=== PATIENT | male | born 1985 | race Caucasian/White ===

== ENCOUNTER 2016-10-04 20:03 | Emergency (ER) | payer OTHER ==
[~2016-10-04] VITALS: Ht 180.3 cm; Wt 90.0 kg
[~2016-10-04 20:03] MED LIST: /DIVA50TA PO; BUPR150T3 PO; CYCL10TA3 PO; CYCL5TAB PO; CYMB60CA3 PO; DEPA500T2 PO; DIAZ5TAB PO; DIVA500T9 PO; EFFE150C PO; GABA-283 PO; GABA300C2 PO; IBUP80TA PO; IMIT50TA PO; LIDO1DIS2 TD; LIDO5OIN TOP; MAXA10TA14 PO; MECL-68 PO; MELO7.5T7 PO; METH1TAB40 PO; NAPR500T2 PO; NORT25CA2 PO; QUETIAPINE PO; Sumatriptan OR; VENL75TA2 PO; WELLTAB4 PO; Wellbutrin OR; sumatriptan OR
[2016-10-04] MEDS ORDERED: CYCL10TA PO (20:17)
[2016-10-04] MEDS ORDERED: SUMA25TA3 PO (20:17)
--- NOTE | 2016-10-04 21:32 | REP ---
Clinical: Cerebrovascular accident . Comparison: 09/25/2013 . Findings: The ventricles, sulci, and cisterns are normal in position and appearance. Arndt-white differentiation is maintained. No acute intracranial hemorrhage, mass/mass effect, pathology or trauma/injury. No evidence for acute infarction. No extra-axial fluid collection. Calvarium is intact. Paranasal sinuses and mastoid air cells are clear. Impression: Normal noncontrast head CT. No evidence for acute intracranial pathology or trauma/injury. Signed by Lawson Arriola MD 10/04/2016 09:24 P
[2016-10-04 22:40] LABS: BASO % 0.8 % (0.0-1.0); EOS # 0.2 K/mm3 (0.0-0.50); EOS % 3.1 % (0.0-3.0); LARGE UNSTAINED CELL # 0.1 K/mm3 (0.0-0.4); LARGE UNSTAINED CELL % 1.2 % (0.0-4.0); LYMPH # 1.8 K/mm3 (1.5-4.5); LYMPH % 29.7 % (24.0-44.0); MEAN CORPUSCULAR HEMOGLOBIN 29.3 pg (27.0-33.0); MEAN CORPUSCULAR VOLUME 86.3 fl (80.0-96.0); MONO # 0.3 K/mm3 (0.0-0.8); MONO % 5.9 % (0.0-5.0); NEUTROPHILS # 3.4 K/mm3 (1.8-7.7); NEUTROPHILS % 59.3 % (36.0-66.0); PLATELET COUNT, AUTOMATED 349 k/mm3 (150-450); RED CELL DISTRIBUTION WIDTH 12.7 % (11.5-14.5); WHITE BLOOD COUNT 5.8 K/mm3 (4.0-10.0)
[2016-10-04 22:52] LABS: ANION GAP 6 MEQ/L (8-16); BLOOD UREA NITROGEN 9 MG/DL (7-18); CALCIUM LEVEL 9.4 MG/DL (8.5-10.1); CARBON DIOXIDE LEVEL 29 MEQ/L (21-32); CHLORIDE LEVEL 104 MEQ/L (98-107); CREATININE FOR GFR 1.07 MG/DL (0.70-1.30); GLOMERULAR FILTRATION RATE > 60.0 (>60); GLUCOSE, FASTING 87 MG/DL (70-105); POTASSIUM SERUM 4.2 MEQ/L (3.5-5.1); SODIUM LEVEL 139 MEQ/L (136-145)
[2016-10-04 22:57] LABS: INR 0.96
[2016-10-04 23:42] VITALS: BP 125/77
--- NOTE | 2016-10-05 07:07 | REP ---
Clinical: Cerebrovascular accident . Comparison: None . Findings: The mediastinum and cardiac silhouette are stable and within normal limits for portable technique. The lung elizondo are clear without acute consolidation, effusion, or pneumothorax. Skeletal structures are intact. Impression: No acute cardiopulmonary process appreciated. Signed by Lawson Arriola MD 10/05/2016 06:59 A
--- NOTE | 2016-10-06 07:19 | ECGEPIP ---
Stationary ECG Study [facility] - ED Test Date: 2016-10-04 Pat Name: KENNY MUÑOZ Department: Room: - Gender: M Maintenance Aide: rb : 1985 Requested By: KENNY Lundberg Order Number: [id number] Reading MD: Karina Chambers Measurements Intervals [place] Rate: 70 P: 43 W[place]: 147 QRS: 4 QRSD: 87 T: 9 QT: 387 QTc: 418 Interpretive Statements SINUS RHYTHM WITH SINUS ARRHYTHMIA MODERATE VOLTAGE CRITERIA FOR LVH, CONSIDER NORMAL VARIANT Electronically Signed On 10-06-2016 7:18:38 EDT by Karina Chambers
== END 2016-10-05 00:05 | disposition home or self-care (01) ==
LOC: M ED 20:03
DX: G43.809 Other migraine, not intractable, without status migrainosus (principal); Z87.891 Personal history of nicotine dependence; Z87.828 Personal history of other (healed) physical injury and trauma

== ENCOUNTER 2017-09-29 20:51 | Emergency (ER) | payer OTHER | END 2017-09-29 22:31 | disposition home or self-care (01) | LOC: M ED 20:51 | DX: F43.0 Acute stress reaction (principal); F32.9 Major depressive disorder, single episode, unspecified; Z91.5 Personal history of self-harm; Z88.8 Allergy status to other drugs, medicaments and biological substances; Z79.899 Other long term (current) drug therapy | CPT/HCPCS: 99284 ==

== ENCOUNTER → 2023-02-01 | Outpatient (REF) | payer OTHER ==
[~2023-02-01] MED LIST changes: -/DIVA50TA PO; +ATOR80TA59 PO; +BUPR150T12 PO; -BUPR150T3 PO; +CYCL-707 PO; -CYMB60CA3 PO; +CYMB60CA4 PO; +DEPA1TAB3 PO; -EFFE150C PO; +EFFE150C2 PO; -GABA-283 PO; +GABA-284 PO; -MAXA10TA14 PO; +MECL-209 PO; +METH-1164 PO; -METH1TAB40 PO; +RIZA10TA64 PO; +SUMA25TA3 PO; +VITMTA PO
== END ==
LOC: M LAB REF 21:46
PROVIDERS: ATTEND Physician Assistant
DX: J02.9 Acute pharyngitis, unspecified (principal)

== ENCOUNTER → 2023-02-15 | Day surgery (SDC) | payer OTHER ==
[~2023-02-15] VITALS: Ht 180.3 cm; Wt 104.3 kg
[~2023-02-15] MED LIST changes: +NS 1,000 ML IV ONE; +fentaNYL 100 MCG/2 ML INJECTION As Ordered ONE; +propofoL 200 MG/20 ML VIAL As Ordered ONE
[2023-02-15 09:41] VITALS: BP 130/73; TEMP 97.8; O2SAT 94
== END | disposition home or self-care (01) ==
LOC: M OPP 08:09
PROVIDERS: ATTEND Internal Medicine Gastroenterology
DX: R19.7 Diarrhea, unspecified (principal); K64.0 First degree hemorrhoids; R10.13 Epigastric pain; R12 Heartburn; E78.00 Pure hypercholesterolemia, unspecified; Z79.899 Other long term (current) drug therapy; Z88.8 Allergy status to other drugs, medicaments and biological substances
CPT/HCPCS: 43239; 45380; 88305; J3010

== ENCOUNTER 2023-03-22 00:54 | Inpatient (IN) | payer OTHER ==
[~2023-03-22] VITALS: Ht 180.3 cm; Wt 107.0 kg
[~2023-03-22 00:54] MED LIST changes: -EFFE150C2 PO; +EFFE150C3 PO; -NS 1,000 ML IV ONE; -fentaNYL 100 MCG/2 ML INJECTION As Ordered ONE; -propofoL 200 MG/20 ML VIAL As Ordered ONE
[2023-03-22 01:40] LABS: HEMATOCRIT 44.9 % (42.0-52.0); HEMOGLOBIN 14.7 g/dl (13.5-17.5); MEAN CORPUSCULAR HEMOGLOBIN 28.4 pg (27.0-33.0); MEAN CORPUSCULAR HGB CONC 32.7 g/dl (32.0-36.5); MEAN CORPUSCULAR VOLUME 86.7 fl (80.0-96.0); PLATELET COUNT, AUTOMATED 432 10^3/uL (150-450); RED BLOOD COUNT 5.18 10^6/uL (4.30-6.10); WHITE BLOOD COUNT 8.6 10^3/uL (4.0-10.0)
[2023-03-22 02:04] LABS: ALBUMIN 4.3 G/DL (3.2-5.2); ALKALINE PHOSPHATASE 91 U/L (46-116); ALT/SGPT 66 U/L (7.0-40); AST/SGOT 32 U/L (<34); BILIRUBIN,DIRECT 0.1 MG/DL (<0.4); BILIRUBIN,TOTAL 0.4 MG/DL (0.3-1.2); BLOOD UREA NITROGEN 10 MG/DL (9-23); CALCIUM LEVEL 9.6 MG/DL (8.5-10.1); CARBON DIOXIDE LEVEL 23 MMOL/L (20-31); CHLORIDE LEVEL 104 MMOL/L (98-107); CREATININE FOR GFR 0.86 MG/DL (0.70-1.30); ETHYL ALCOHOL (ETHANOL) < 0.003 % (0.000-0.010); GLOMERULAR FILTRATION RATE > 60.0 (>60); GLUCOSE, FASTING 113 MG/DL (60-100); POTASSIUM SERUM 4.7 MMOL/L (3.5-5.1); SALICYLATE LEVEL < 3.0 MG/DL (<30); SODIUM LEVEL 139 MMOL/L (136-145); THYROID STIMULATING HORMONE 1.235 uIU/ML (0.55-4.78); TOTAL PROTEIN 8.4 G/DL (5.7-8.2)
[2023-03-22 02:33] LABS: AMPHETAMINES LEVEL URINE NEGATIVE (NEGATIVE); BARBITURATES URINE NEGATIVE (NEGATIVE); BENZODIAZEPINES URINE NEGATIVE (NEGATIVE); COCAINE METABOLITE URINE NEGATIVE (NEGATIVE); METHADONE URINE NEGATIVE (NEGATIVE); OPIATES URINE NEGATIVE (NEGATIVE); PHENCYCLIDINE URINE NEGATIVE (NEGATIVE)
[2023-03-22 03:03] LABS: CANNABINOIDS URINE POSITIVE (NEGATIVE)
[2023-03-22] MEDS ORDERED: diphenhydrAMINE 25MG CAP PO PRN (12:55)
[2023-03-22] MEDS ORDERED: MOM 30ML SUSPENSION UDC PO PRN (12:55)
[2023-03-22] MEDS ORDERED: IBUPROFEN 400MG TAB PO PRN (12:55)
[2023-03-22] MEDS ORDERED: traZODone 50 MG TAB PO PRN (12:55)
[2023-03-22] MEDS ORDERED: MAALOX 30 ML SUSP *UDC PO PRN (12:55)
[2023-03-22] MEDS ORDERED: ACETAMINOPHEN TAB 650MG DOSE (2X325MG) PO PRN (12:55)
[2023-03-22 16:37] VITALS: BP 134/74; TEMP 96.4; O2SAT 100
[2023-03-23 06:38] VITALS: BP 144/89; TEMP 98.7; O2SAT 100
[2023-03-23] MEDS ORDERED: ERGO500029 PO (08:36)
[2023-03-23] MEDS ORDERED: HOME MED LIST COMPLETE! XX SCH (08:40)
[2023-03-23] MEDS: lamoTRIgine 25MG TAB PO SCH (09:45)
[2023-03-23 17:36] VITALS: BP 132/89; TEMP 98.4; O2SAT 96
[2023-03-24 06:32] VITALS: BP 133/74; TEMP 97; O2SAT 96
[2023-03-24] MEDS: lamoTRIgine 25MG TAB PO SCH (08:35)
[2023-03-24 17:57] VITALS: BP 115/70; TEMP 97.9; O2SAT 98
[2023-03-25 06:23] VITALS: BP 120/60; TEMP 97.7; O2SAT 99
[2023-03-25] MEDS: lamoTRIgine 25MG TAB PO SCH (08:57)
[2023-03-25] MEDS ORDERED: TRAZ-252 PO (10:40)
[2023-03-25] MEDS ORDERED: LAMI25TA PO (10:40)
== END 2023-03-25 11:36 | disposition home or self-care (01) | DRG 881 ==
LOC: M ED 00:54 → M ED INP 12:55 → M PSY 17:05
PROVIDERS: ADMIT Student in an Organized Health Care Education/Training Program; ATTEND Student in an Organized Health Care Education/Training Program
DX: F32.9 Major depressive disorder, single episode, unspecified (principal); R45.851 Suicidal ideations; R04.2 Hemoptysis; F43.20 Adjustment disorder, unspecified; F41.9 Anxiety disorder, unspecified; F10.10 Alcohol abuse, uncomplicated; R74.01 Elevation of levels of liver transaminase levels; G89.29 Other chronic pain; M54.9 Dorsalgia, unspecified; M25.569 Pain in unspecified knee; E78.5 Hyperlipidemia, unspecified; Z87.820 Personal history of traumatic brain injury; Z91.51 Personal history of suicidal behavior; Z79.899 Other long term (current) drug therapy; Z88.8 Allergy status to other drugs, medicaments and biological substances; Z91.018 Allergy to other foods

== ENCOUNTER 2023-06-07 21:20 | Emergency (ER) | payer OTHER ==
[~2023-06-07] VITALS: Ht 177.8 cm; Wt 105.0 kg
[~2023-06-07 21:20] MED LIST changes: +ERGO500029 PO; +LAMI25TA PO; +TRAZ-252 PO
[2023-06-07 22:44] LABS: HEMATOCRIT 43.1 % (42.0-52.0); HEMOGLOBIN 13.9 g/dl (13.5-17.5); MEAN CORPUSCULAR HGB CONC 32.3 g/dl (32.0-36.5); MEAN CORPUSCULAR VOLUME 86.7 fl (80.0-96.0); PLATELET COUNT, AUTOMATED 378 10^3/uL (150-450); RED BLOOD COUNT 4.97 10^6/uL (4.30-6.10); WHITE BLOOD COUNT 7.3 10^3/uL (4.0-10.0)
[2023-06-07 23:07] LABS: AMPHETAMINES LEVEL URINE NEGATIVE (NEGATIVE); BARBITURATES URINE NEGATIVE (NEGATIVE); BENZODIAZEPINES URINE NEGATIVE (NEGATIVE); COCAINE METABOLITE URINE NEGATIVE (NEGATIVE); METHADONE URINE NEGATIVE (NEGATIVE); OPIATES URINE NEGATIVE (NEGATIVE); PHENCYCLIDINE URINE NEGATIVE (NEGATIVE)
[2023-06-07 23:10] LABS: ETHYL ALCOHOL (ETHANOL) 0.006 % (0.000-0.010)
[2023-06-07 23:11] LABS: ALKALINE PHOSPHATASE 81 U/L (46-116); ALT/SGPT 49 U/L (7.0-40); AST/SGOT 23 U/L (<34); BILIRUBIN,DIRECT 0.1 MG/DL (<0.4); BILIRUBIN,TOTAL 0.5 MG/DL (0.3-1.2); BLOOD UREA NITROGEN 16 MG/DL (9-23); CALCIUM LEVEL 8.9 MG/DL (8.5-10.1); CANNABINOIDS URINE POSITIVE (NEGATIVE); CARBON DIOXIDE LEVEL 27 MMOL/L (20-31); CHLORIDE LEVEL 103 MMOL/L (98-107); CREATININE FOR GFR 1.01 MG/DL (0.70-1.30); GLOMERULAR FILTRATION RATE > 60.0 (>60); GLUCOSE, FASTING 98 MG/DL (60-100); POTASSIUM SERUM 4.2 MMOL/L (3.5-5.1); SALICYLATE LEVEL < 3.0 MG/DL (<30); SODIUM LEVEL 137 MMOL/L (136-145); TOTAL PROTEIN 7.5 G/DL (5.7-8.2)
[2023-06-08] MEDS: ACETAMINOPHEN TAB 650MG DOSE (2X325MG) PO ONE (00:03)
[2023-06-08 00:26] VITALS: BP 125/68; TEMP 97.5; O2SAT 99
== END 2023-06-08 00:29 | disposition home or self-care (01) ==
LOC: M ED 21:20
DX: F32.A Depression, unspecified (principal); E78.5 Hyperlipidemia, unspecified; F41.9 Anxiety disorder, unspecified; F43.10 Post-traumatic stress disorder, unspecified; F12.10 Cannabis abuse, uncomplicated; Z88.8 Allergy status to other drugs, medicaments and biological substances; Z91.018 Allergy to other foods; Z79.899 Other long term (current) drug therapy